=== PATIENT | female | born 2005 | race Caucasian/White ===

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

== ENCOUNTER 2024-03-22 15:18 | Emergency (ER) | payer BC, SELFPAY ==
--- NOTE | 2024-03-22 15:29 | ED.URI ---
HPI - URI/Sore Throat General Chief Complaint: Upper Respiratory Infection Stated Complaint: sore throat, phelgm ,voice issue Time Seen by Provider: 03/22/24 15:25 Source: patient Mode of arrival: ambulatory Limitations: no limitations History of Present Illness HPI Narrative: Marcela is a 19-year-old female patient presenting to the today with complaints of sore throat, nasal congestion, and cough x4 days. No known fever or chills. States she feels as though she is losing her voice. Denies any chest pain but does feel short of breath at times. MD elicited complaint: sore throat and nasal congestion Related Data Home Medications Medication Instructions Recorded Confirmed escitalopram oxalate 10 mg tablet 10 mg PO DAILY 03/22/24 03/22/24 norgestimate 0.25 mg-ethinyl 1 tablet PO DAILY 03/22/24 03/22/24 estradiol 35 mcg tablet (Sprintec (28)) Allergies Allergy/AdvReac Type Severity Reaction Status Date / Time No Known Allergies Allergy Unverified 03/22/24 15:43 Review of Systems Review of Systems: Pertinent positives per HPI. Patient denies any fever, chills, rash, headache, visual changes, dizziness, chest pain, palpitations, nausea, vomiting, diarrhea, constipation, abdominal pain, or any urinary issues. PMFSH Comments At the time of my signature, I reviewed and agree with the nursing past medical, surgical, social, and family history. There is no relevant family history pertinent to the patient complaint. Exam Narrative: General: Well-developed, well nourished, in no apparent distress Head: Normocephalic, atraumatic Eyes: Pupils equally round and reactive to light bilaterally, EOM intact, sclera and conjunctive clear, no discharge, lids normal Ears: TMs intact and clear, ear canals clear, no drainage, grossly hearing normal. Nose: Nares patent, clear nasal discharge, no inflammation, no sinus tenderness. Mouth: Oral pharynx red without lesions or masses, good dentition, MMM. Neck: Supple, trachea midline, no enlargement of anterior or posterior cervical nodes, no thyroid masses or goiter palpable. Cardio: Regular rate and rhythm, s1 and s2 normal, no murmur appreciated. Resp: Clear to auscultation bilaterally, no rhonchi, rales, wheezing or rubs Course Course Emergency Course: Portions of this record may have been created with voice recognition software. Level of Care: Express Care Visit Vital Signs Vital signs: Vital Signs Temperature 36.3 C L 03/22/24 15:34 Pulse Rate 81 03/22/24 15:34 Respiratory Rate 16 03/22/24 15:34 Blood Pressure 125/73 03/22/24 15:34 Pulse Oximetry 99 03/22/24 15:34 Oxygen Delivery Room Air 03/22/24 15:34 Temperature 36.3 C L 03/22/24 15:43 Pulse Rate 81 03/22/24 15:43 Respiratory Rate 16 03/22/24 15:43 Blood Pressure 125/73 03/22/24 15:43 Pulse Oximetry 99 03/22/24 15:43 Oxygen Delivery Room Air 03/22/24 15:43 Vital signs reviewed MDM - URI/Sore Throat MDM Narrative Medical decision making narrative: At the time of visit patient is resting comfortably on the exam table. Patient appears to be nontoxic. Labs: Strep test was obtained and was negative in the clinic today. We will send for culture. Plan: I suspect patient has URI/pharyngitis. Lung sounds are clear in the office patient has nonproductive cough and she is afebrile. Will place patient on albuterol inhaler and prednisone. Supportive measures were discussed with the patient and they voiced understanding discharge instructions and agrees to treatment plan. Return precautions reviewed Differential Diagnosis Differential diagnosis: Likely upper respiratory infection, otitis media, sinusitis, viral infection, bronchitis, influenza and pharyngitis Lab Data Labs: Lab Results 03/22/24 Range/Units 15:48 POC Grp A Strep Screen Negative (Negative) Discharge Plan Discharge Clinical Impression: Viral infection Upper respiratory infection Qualifiers: URI type: unspecified URI Qualified Code(s): J06.9 - Acute upper respiratory infection, unspecified Pharyngitis Qualifiers: Pharyngitis/tonsillitis etiology: unspecified etiology Qualified Code(s): J02.9 - Acute pharyngitis, unspecified Patient Disposition: Home, Self-Care Condition: Stable Instructions: Antibiotic Form, Pharyngitis (ED), Viral Syndrome (ED), Cold Symptoms (ED) Additional Instructions: Take prescription medications only as prescribed-prednisone and albuterol inhaler Increase fluids and stay well hydrated Tylenol/motrin for pain/fever Flonase and OTC antihistamines as directed Vicks vapor rub to open sinuses Sinus rinses for congestion Cepacol spray, cough drops, throat lozenges, warm tea with honey/lemon, gargle salt water to soothe throat BRAT diet for diarrhea Clear liquids x 24 hours then advance as tolerated for nausea/vomiting Go to the ED if you develop a worsening in your condition- high fever not controlled by Tylenol or Motrin, dehydration, weakness, lethargy, shortness of breath, or chest pain. Follow up with your PCP in 3-5 days if symptoms persist. Prescriptions: New prednisone 20 mg tablet 40 mg PO DAILY 5 Days Qty: 10 0RF albuterol sulfate 90 mcg/actuation HFA aerosol inhaler 2 puff inhalation Q4-6H PRN (Reason: shortness of breath or wheezing) 30 Days Qty: 8.5 0RF No Action norgestimate-ethinyl estradiol [Sprintec (28)] 0.25-35 mg-mcg Tablet 1 tablet PO DAILY escitalopram oxalate 10 mg Tablet 10 mg PO DAILY Follow-up/Referrals: PHYSICIAN NOT ON STAFF,NONSTAFF [Primary Care Provider] - Stand Alone Forms: Work/School Release IP Time of Disposition: 15:49 Quality NIHSS Nursing Documentation ED NIHSS nursing documentation: reviewed/agree
[2024-03-22 15:34] VITALS: BP 125/73; PULSE 81; RESP 16; TEMP 36.3; O2SAT 99
[2024-03-22 15:43] VITALS: BP 125/73; PULSE 81; RESP 16; TEMP 36.3; O2SAT 99
[2024-03-22 15:49] LABS: EDSTREPNEGPOS1 Negative (Negative)
== END 2024-03-22 15:55 | disposition home or self-care (01) ==
PROVIDERS: Emergency Provider Nurse Practitioner Family
DX: B34.9 Viral infection, unspecified (principal); J06.9 Acute upper respiratory infection, unspecified; J02.9 Acute pharyngitis, unspecified; F41.9 Anxiety disorder, unspecified
CPT/HCPCS: 87081; 87880; 99213; G0463